=== PATIENT | female | born 1970 | race Caucasian/White ===

== ENCOUNTER 2024-03-13 10:07 | Outpatient (CLI) | payer OTHER | END 2024-03-13 10:22 | disposition home or self-care (01) | LOC: SONOGRAMA 10:07 | PROVIDERS: ATTEND Radiology Diagnostic Radiology | DX: N76.4 Abscess of vulva (principal) ==

== ENCOUNTER 2024-04-03 07:03 | Outpatient (CLI) | payer OTHER ==
[2024-04-03] MEDS ORDERED: SYNTHROID88 MCG (09:16)
== END 2024-04-03 07:04 | disposition home or self-care (01) ==
LOC: EKG 07:03 → LAB 07:03 → EKG 07:04
DX: Z01.810 Encounter for preprocedural cardiovascular examination (principal); N90.7 Vulvar cyst

== ENCOUNTER 2024-04-04 05:23 | Day surgery (SDC) | payer OTHER ==
[~2024-04-04 05:23] MED LIST: SYNTHROID88 MCG
[2024-04-04] MEDS ORDERED: CEFAZOLIN SODIUM 1,000 MG VIAL IV ONE (09:15)
[2024-04-04] MEDS ORDERED: POVIDONE-IODINE 118 ML BOTT TOP ONE (09:15)
== END 2024-04-04 12:10 | disposition home or self-care (01) ==
LOC: CIR.AMB 05:23
PROVIDERS: ATTEND Surgery
DX: N90.7 Vulvar cyst (principal); E03.9 Hypothyroidism, unspecified; G47.00 Insomnia, unspecified